=== PATIENT | male | born 1990 | race African-American/Black ===

== ENCOUNTER 2022-06-14 21:55 | Emergency (ER) | payer OTHER ==
[2022-06-14 22:13] VITALS: BP 117/80; PULSE 78; TEMP 98; BMI 26.4
[2022-06-14] MEDS ORDERED: DIPHTH,PERTUSS(ACELL),TET 0.5 ML DISP.SYRIN IM ONE ×2 (22:46→23:00)
[2022-06-14] MEDS ORDERED: IBUPROFEN 600 MG TABLET (FP) PO ONE ×2 (23:23→23:26)
== END 2022-06-15 00:22 | disposition home or self-care (01) ==
LOC: JER 21:55 → JERFT 21:55
PROC: 0HQEXZZ Repair Left Lower Arm Skin, External Approach (ICD-10-PCS; principal; 2022-06-14)
PROC: 3E0234Z Introduction of Serum, Toxoid and Vaccine into Muscle, Percutaneous Approach (ICD-10-PCS; 2022-06-14)
DX: S51.812A Laceration without foreign body of left forearm, initial encounter (principal)
CPT/HCPCS: 12001; 73090-TC-LT-FY; 90471; 90715; 99284-25

== ENCOUNTER 2022-07-04 14:11 | Emergency (ER) | payer OTHER ==
[2022-07-04 14:27] VITALS: BP 128/63; PULSE 91; RESP 18; TEMP 97.8; BMI 25.4
== END 2022-07-04 15:10 | disposition home or self-care (01) ==
LOC: JERFT 14:11
DX: Z48.00 Encounter for change or removal of nonsurgical wound dressing (principal)
CPT/HCPCS: 99281-25